=== PATIENT | male | born 1995 | race African-American/Black ===

== ENCOUNTER 2017-01-05 11:42 | Emergency (ER) | payer OTHER ==
[~2017-01-05] VITALS: Ht 182.9 cm; Wt 77.0 kg
[2017-01-05] MEDS ORDERED: BACITRACIN ZINC OINT UDPKT TOP ONE (12:45)
[2017-01-05] MEDS ORDERED: TETANUS, DIPHTHERIA, PERTUSSIS VAC/PF 0.5ML (>7YR OLD) IM ONE (12:45)
[2017-01-05 12:58] VITALS: BP 126/75
[2017-01-05] MEDS ORDERED: IBUPROFEN 600MG TABLET PO ONE (13:00)
[2017-01-05] MEDS ORDERED: LIDOCAINE HCL 1% 20ML VIAL (Pyxis) INJ INFIL ONE (14:15)
[2017-01-05] MEDS ORDERED: LIDOCAINE HCL/EPINEPHRINE 1%-EPI 1:100,000 30 ML VIAL INFIL ONE (14:15)
== END 2017-01-05 16:32 | disposition home or self-care (01) ==
LOC: ER 12:19
DX: S01.81XA Laceration without foreign body of other part of head, initial encounter (principal); M79.642 Pain in left hand; F17.210 Nicotine dependence, cigarettes, uncomplicated; Y04.0XXA Assault by unarmed brawl or fight, initial encounter; Y92.018 Other place in single-family (private) house as the place of occurrence of the external cause
CPT/HCPCS: 12013; 70150; 73130; 90471; 90715; 99284; J3490; X7700; Z7610